=== PATIENT | male | born 1950 | race Caucasian/White ===

== ENCOUNTER 2021-12-06 01:23 | Day surgery (SDC) | payer BC, SELFPAY ==
--- NOTE | 2021-11-02 13:05 | PC.NURSE ---
Report to the Outpatient Waiting Room, entrance under the green pavilion located off [facility], at time _1000 on date _11/09/21 . OR Time: _1200 . - You and your visitor will be asked a series of questions to screen for COVID 19 for your protection. - A mask is required within the hospital. Preoperative COVID Testing Requirements: No COVID Test needed if: (proof is required; if not received patient will have Rapid Test prior to entry) - Patient has received COVID Vaccine at least 14 days prior to procedure date or - Patient has positive COVID test result within last 90 days of surgery date. COVID Test needed if above criteria is not met If not COVID vaccinated a COVID test must be conducted within 72 hours of surgery and patient is asked to isolate self from time of testing until procedure. You will go to the [facility] for your COVID testing. The [email or web address] is located at the corner of [address] [facility]. You will only be called if COVID results are positive and your surgeon may reschedule your elective surgery date. Patients may have clear liquids (water, carbonated beverages, clear teas, apple juice) until 3 hours prior to surgery with a maximum of 20 ounces. - No food from midnight until time of surgery - Infants may have breast milk until 4 hours before surgery, infant formula 6 hours prior to surgery. - Children will be allowed to drink immediately following surgery. If applicable, please bring a bottle or sippy cup to assist with drinking. Juice, water, soda, and popsicles are readily available. For infants on formula, please bring formula the day of surgery. Pacifiers are allowed. Take the following medications with a SIP of water the morning of surgery: PAIN PILL IF NEEDED Medications to discontinue per physician ___NONE Date to take last dose Please no make-up, nail prydeinig, hairspray, perfume, deodorant, or body powder the day of surgery. No jewelry (including any body piercings) or valuables the day of surgery, leave them at home. Please take a shower or bath the night before, or the morning of, surgery with an antibacterial soap. Wear comfortable, loose fitting clothing. Children are encouraged to wear pajamas. - Jewelry must be removed prior to entering the operating room. Rings and piercings that are not removed may be cut off. - The hospital will not accept responsibility for valuables. - Please leave all valuables, including medications, at home the day of surgery. If you are going home after surgery, a licensed shuttle driver must drive you home. - NO public transportation without another adult. - We recommend that an adult stay with you for 24 hours following discharge. - We also recommend that you do not drive, make important decision, drink alcoholic beverages, or take any drugs that were not prescribed by your health care provider for at least 24 hours after your discharge time. For Pediatric surgeries, we recommend two adults accompany the child home (only one inside the building at this time). One visitor will be allowed to accompany the patient into the hospital. Patients visitor will be instructed to remain with patient at all times or leave the building. We will allow the visitor to come back to the postoperative area when patient is ready. Follow any additional instructions given to you from your surgeon. Telephone instructions given to ___PATIENT and asked if any additional questions and then verbalized understanding. Patient advised to call surgeon office or pre surgery nurse liaison [phone] if any additional questions.
[2021-11-02 13:06] VITALS: BMI 31.8
--- NOTE | 2021-11-27 09:49 | PC.NURSE ---
Report to the Outpatient Waiting Room, entrance under the green pavilion located off [facility], at time _0900 on date _12/06/21 . OR Time: 1100 . - You and your visitor will be asked a series of questions to screen for COVID 19 for your protection. - A mask is required within the hospital. Preoperative COVID Testing Requirements: No COVID Test needed if: (proof is required; if not received patient will have Rapid Test prior to entry) - Patient has received COVID Vaccine at least 14 days prior to procedure date or - Patient has positive COVID test result within last 90 days of surgery date. COVID Test needed if above criteria is not met If not COVID vaccinated a COVID test must be conducted within 72 hours of surgery and patient is asked to isolate self from time of testing until procedure. You will go to the [facility] for your COVID testing. The [facility] is located at the corner of [address] [facility]. You will only be called if COVID results are positive and your surgeon may reschedule your elective surgery date. Patients may have clear liquids (water, carbonated beverages, clear teas, apple juice) until 3 hours prior to surgery with a maximum of 20 ounces. - No food from midnight until time of surgery - Infants may have breast milk until 4 hours before surgery, infant formula 6 hours prior to surgery. - Children will be allowed to drink immediately following surgery. If applicable, please bring a bottle or sippy cup to assist with drinking. Juice, water, soda, and popsicles are readily available. For infants on formula, please bring formula the day of surgery. Pacifiers are allowed. Take the following medications with a SIP of water the morning of surgery: ____PAIN PILL IF NEEDED Medications to discontinue per physician ____NONE Date to take last dose Please no make-up, nail palauan, hairspray, perfume, deodorant, or body powder the day of surgery. No jewelry (including any body piercings) or valuables the day of surgery, leave them at home. Please take a shower or bath the night before, or the morning of, surgery with an antibacterial soap. Wear comfortable, loose fitting clothing. Children are encouraged to wear pajamas. - Jewelry must be removed prior to entering the operating room. Rings and piercings that are not removed may be cut off. - The hospital will not accept responsibility for valuables. - Please leave all valuables, including medications, at home the day of surgery. If you are going home after surgery, a licensed stacker driver must drive you home. - NO public transportation without another adult. - We recommend that an adult stay with you for 24 hours following discharge. - We also recommend that you do not drive, make important decision, drink alcoholic beverages, or take any drugs that were not prescribed by your health care provider for at least 24 hours after your discharge time. For Pediatric surgeries, we recommend two adults accompany the child home (only one inside the building at this time). One visitor will be allowed to accompany the patient into the hospital. Patients visitor will be instructed to remain with patient at all times or leave the building. We will allow the visitor to come back to the postoperative area when patient is ready. Follow any additional instructions given to you from your surgeon. Telephone instructions given to _PATIENT and asked if any additional questions and then verbalized understanding. Patient advised to call surgeon office or pre surgery nurse liaison [phone] if any additional questions.
--- NOTE | 2021-11-27 09:50 | PC.NURSE ---
PT STATES NO CHANGE IN HEALTH HX SINCE LAST INTERVIEW ON 11/02/21
--- NOTE | 2021-12-04 17:42 | PM.SD2 ---
Same Day Admit/Disch: HPI History of Present Illness Chief complaint: Skin Cyst on Back Narrative: Bogdan Syed Jr. is a 71 year old male Who has had an enlarging subcutaneous mass in the right mid back for well over a year. He is very active man and and when he bumps this area or when he is particularly busy it will get irritated, inflamed, and painful. He has never had any drainage from this subcutaneous mass. He has taken antibiotics for this when it has been inflamed. He was seen in the office and found to have an inclusion cyst of the back. He is taken to surgery now for excision. [facility] Past Medical History Medical History Left lateral epicondylitis Mixed hyperlipidemia Obesity (BMI 30-39.9) Obstructive sleep apnea (adult) (pediatric) Subacromial impingement of left shoulder Tobacco abuse Type 2 diabetes mellitus without complications Surgical History Surgical History H/O shoulder surgery right rotator cuff with Dr. Aleksandr CONRAD History of shoulder surgery let rotator cuff Previous back surgery terry, 3 separate surgeries Family History Family History Mother Diabetes mellitus Hypertension Father No problems noted. Son Asthma Social History Social History Smoking packs per day: 1 Smoking cigarettes per day: 20.0 Years smoked: 8 Smoking pack-years: 8.00 Smoking status: Former smoker Tobacco type: cigarettes Second hand tobacco smoke exposure: No Smoking end date: 09/16/77 Alcohol intake: current Drinks per week: 7 Alcohol use details: BEER Substance use: never Substance use type: does not use Living arrangements: with family Additional occupation/education comments: [employer] Gender identity (if verbalized by the patient): Male Sexual Orientation (if Verbalized by the Patient): Straight or Heterosexual Spiritual care concerns: No Agree to blood products: Yes Same Day Admit/Disch: Med Pre-admit Medications Home Medications Medication Instructions Recorded Confirmed Type atorvastatin 20 mg tablet 10 mg PO DAILY 06/15/20 12/06/21 History metformin 500 mg PO TID 11/02/21 12/06/21 History lisinopril 20 mg tablet 20 mg PO DAILY #90 tablet 11/16/21 12/06/21 Rx buprenorphine HCl 300 mcg buccal 300 mcg BUCCAL Q12H #60 ea 11/29/21 12/06/21 Rx film hydrocodone 10 mg-acetaminophen 1 tablet PO QID PRN #120 tablet 11/29/21 Rx 325 mg tablet hydrocodone-acetaminophen 1 - 2 tablet PO Q6H PRN #10 tablet 12/06/21 Rx Exam Const: General: comfortable, no acute distress, alert and awake HENMT: Head: normocephalic and atraumatic Mouth: Yes Normal oral and palatal mucosa present Eyes: Conjunctivae: conjunctivae normal Pupils: Equal, round and reactive pupils present EOM: EOMs intact bilaterally Neck: Neck: normal visual inspection, no lymphadenopathy and nontender Resp: Effort & Inspection: normal respiratory effort Auscultation: clear to auscultation bilaterally Cardio: Rate: regular rate Rhythm: regular rhythm Heart sounds: no gallops, no murmurs and no rubs GI: Inspection: non-distended GI Palp: Yes Soft to palpation, No Tenderness to palpation present (GI), No Hepatomegaly present and No Splenomegaly present Back/Spine/Pelvis: Back: mass ( 3 x 2 cm mass in the right mid back just below the scapula. Nontender) and other ( consistent with inclusion cyst) Skin: Lesions: no lesions Rashes: no rashes Neuro: General: no focal motor deficits and CN's II-XI intact bilaterally Cranial nerves: Yes Equal, round and reactive pupils present, Yes Bilaterally intact EOM present, Yes facial symmetry and Yes Midline tongue present Speech: normal speech Motor exam (neuro): 5/5 motor strength present throughout a
[2021-12-06 09:43] VITALS: BP 151/85; PULSE 69; RESP 16; TEMP 37; O2SAT 100
[2021-12-06 10:05] LABS: Glucose Point of Care 186 mg/dl (65-105)
--- NOTE | 2021-12-06 10:14 | WPDHPUPDATE1 ---
History and Physical Update Update Date/Time: 12/06/21 10:14 History and Physical has been reviewed, including an updated exam of the patient. There are NO changes in the patient's condition. Risks, benefits, and alternatives have been discussed and questions answered. Patient agrees to proceed with procedure.
--- NOTE | 2021-12-06 10:26 | WPDANESEPP ---
Anes - Eval Pre Procedure Procedure: Operation Date: 12/06/21 11:00 Proposed Procedures p Excision Skin Cyst of the Back - Jam Calabrese MD Date/Time: 12/06/21 10:26 Pre Op Diagnosis: Skin Cyst on Back Patient Data Age: 71 Gender: M Height: 1.83 m Weight: 109.1 kg Last Vital Signs Temp 98.6 F 12/06/21 09:43 Pulse 69 12/06/21 09:43 Resp 16 12/06/21 09:43 BP 151/85 H 12/06/21 09:43 Pulse Ox 100 12/06/21 09:43 Allergies Allergy/AdvReac Type Severity Reaction Status Date / Time banana Allergy Mild Gastrointestinal Verified 12/06/21 09:31 Upset celecoxib Allergy Mild Nervousness Verified 12/06/21 09:31 NSAIDS (Non-Steroidal Allergy Mild elevated Verified 12/06/21 09:31 Anti-Inflamma heart rate Sulfa (Sulfonamide Allergy Mild RESPIRATORY Verified 12/06/21 09:31 Antibiotics) DISTRESS/THROAT CONSTRICTS morphine AdvReac Intermediate itching Verified 12/06/21 09:31 tramadol AdvReac Mild mental Verified 12/06/21 09:31 confusion Quesada Pepper Allergy Mild Gastrointestinal Uncoded 12/06/21 09:31 Upset Home Medications Medication Instructions Recorded Confirmed Type atorvastatin 20 mg tablet 10 mg PO DAILY 06/15/20 12/06/21 History metformin 500 mg PO TID 11/02/21 12/06/21 History lisinopril 20 mg tablet 20 mg PO DAILY #90 tablet 11/16/21 12/06/21 Rx buprenorphine HCl 300 mcg buccal 300 mcg BUCCAL Q12H #60 ea 11/29/21 12/06/21 Rx film hydrocodone 10 mg-acetaminophen 1 tablet PO QID PRN #120 tablet 11/29/21 Rx 325 mg tablet Laboratory Tests 12/06/21 09:49 POC Capillary Glucose 186 mg/dl H mg/dl (65-105) Patient hx anesthesia problems: none Family hx anesthesia problems: none Results Review: All pre-operative results and documents have been reviewed as part of the pre-operative evaluation. [facility] Past Medical History Medical History (Updated 12/06/21 @ 10:28 by Kasia Mesa CRNA) Left lateral epicondylitis Obesity (BMI 30-39.9) Subacromial impingement of left shoulder Tobacco abuse Surgical History Surgical History H/O shoulder surgery right rotator cuff with Dr. Aleksandr CONRDA History of shoulder surgery let rotator cuff Previous back surgery terry, 3 separate surgeries Family History Family History Mother Diabetes mellitus Hypertension Father No problems noted. Son Asthma Social History Social History Smoking packs per day: 1 Smoking cigarettes per day: 20.0 Years smoked: 8 Smoking pack-years: 8.00 Smoking status: Former smoker Tobacco type: cigarettes Second hand tobacco smoke exposure: No Smoking end date: 09/16/77 Alcohol intake: current Drinks per week: 7 Alcohol use details: BEER Substance use: never Substance use type: does not use Living arrangements: with family Additional occupation/education comments: [employer] Gender identity (if verbalized by the patient): Male Sexual Orientation (if Verbalized by the Patient): Straight or Heterosexual Spiritual care concerns: No Agree to blood products: Yes Exam Day of Procedure 12/06/21 10:26 Patient weight: obese (bmi 32.6) Heart: regular rate and rhythm Lungs: clear to auscultation Airway: Mallampati scale class III
--- NOTE | 2021-12-06 10:32 | W.PM.PROC2 ---
Procedure Note - Detailed Date of Procedure 12/06/21 Pre-op Diagnosis Skin Cyst on Back Post-op Diagnosis Same Procedure Performed Excision 5 cm skin cyst of the back with 1 cm margins, 7.5 cm layered closure Surgeon Jam Calabrese MD Anesthesia MAC and Local (0.25% Marcaine with epinephrine) Indications Patient has a subcutaneous nodule in the right mid back just under the scapula. This would frequently get infected but did respond to antibiotics. He was seen in the office and the lesion was felt to be 3 x 2 cm and was easily palpable. Since that time, the cyst has not flared with infection and has become more of a rather sunken scar. He is taken to surgery now for excision of the cyst to prevent further recurrences of infection. Findings The scarred, indurated area measured 5 cm in length. The cyst itself was not well-defined unlike its presentation in the office. 1 cm margins were used to excise the cyst to avoid leaving any remnants behind. The resultant wound measured 7.5 cm and was closed in layers. Description of Procedure The patient was taken to surgery and placed in prone position. IV sedation was administered. The area of the cyst been marked in the preoperative area and this area was prepped and draped. Local anesthetic was infiltrated over the ellipse that had been previously drawn on the skin. Subcutaneous infiltration was also carried out. Incision was made and dissection carried down through the subcutaneous. We took subcutaneous tissue and stayed away from any scar tissue resembling residual cyst. The excision included most of the subcutaneous but did not extend to the muscular fascia. The resultant defect was measured as noted above. Additional local was infiltrated into the deeper aspects of the wound. I then undermined some of the subcutaneous on each side. A deep layer of interrupted 3-0 Vicryl was placed. Isaac's fascia was then closed with interrupted 3-0 Vicryl. Some subcuticular 4-0 Vicryl sutures were placed. The skin was then approximated with horizontal mattress sutures of 3-0 nylon. The wound was dressed with Xeroform gauze fluffs and Medipore tape. Patient was awakened and taken to recovery in good condition. Sponge needle counts were correct x2. Estimated Blood Loss -5 Drains No Packing No Pathology Yes (Skin cyst of the back) Complications No immediate complications Condition Stable Disposition Same day
[2021-12-06] MEDS: LACTATED RINGERS 1,000 ML 30 ML IV CONT (10:33)
--- NOTE | 2021-12-06 10:35 | WPDANESEPPF ---
Anes - Initial Pre Proc Eval Procedure: Operation Date: 12/06/21 11:00 Proposed Procedures p Excision Skin Cyst of the Back - Jam Calabrese MD Date/Time: 12/06/21 10:35 Surgeon: Jam Calabrese MD Pre Op Diagnosis: Skin Cyst on Back Patient Data Age: 71 Gender: M Height: 1.83 m Weight: 109.1 kg Last Vital Signs Temp 37.0 C 12/06/21 09:43 Pulse 69 12/06/21 09:43 Resp 16 12/06/21 09:43 BP 151/85 H 12/06/21 09:43 Pulse Ox 100 12/06/21 09:43 Allergies Allergy/AdvReac Type Severity Reaction Status Date / Time banana Allergy Mild Gastrointestinal Verified 12/06/21 09:31 Upset celecoxib Allergy Mild Nervousness Verified 12/06/21 09:31 NSAIDS (Non-Steroidal Allergy Mild elevated Verified 12/06/21 09:31 Anti-Inflamma heart rate Sulfa (Sulfonamide Allergy Mild RESPIRATORY Verified 12/06/21 09:31 Antibiotics) DISTRESS/THROAT CONSTRICTS morphine AdvReac Intermediate itching Verified 12/06/21 09:31 tramadol AdvReac Mild mental Verified 12/06/21 09:31 confusion Quesada Pepper Allergy Mild Gastrointestinal Uncoded 12/06/21 09:31 Upset Home Medications Medication Instructions Recorded Confirmed Type atorvastatin 20 mg tablet 10 mg PO DAILY 06/15/20 12/06/21 History metformin 500 mg PO TID 11/02/21 12/06/21 History lisinopril 20 mg tablet 20 mg PO DAILY #90 tablet 11/16/21 12/06/21 Rx buprenorphine HCl 300 mcg buccal 300 mcg BUCCAL Q12H #60 ea 11/29/21 12/06/21 Rx film hydrocodone 10 mg-acetaminophen 1 tablet PO QID PRN #120 tablet 11/29/21 Rx 325 mg tablet hydrocodone-acetaminophen 1 - 2 tablet PO Q6H PRN #10 tablet 12/06/21 Rx Laboratory Tests 12/06/21 09:49 POC Capillary Glucose 186 mg/dl H mg/dl (65-105) Patient hx anesthesia problems: none Family hx anesthesia problems: none Results Review: All pre-operative results and documents have been reviewed as part of the pre-operative evaluation. [facility] Past Medical History Medical History Left lateral epicondylitis Mixed hyperlipidemia Obesity (BMI 30-39.9) Obstructive sleep apnea (adult) (pediatric) Subacromial impingement of left shoulder Tobacco abuse Type 2 diabetes mellitus without complications Surgical History Surgical History H/O shoulder surgery right rotator cuff with Dr. Aleksandr CONRAD History of shoulder surgery let rotator cuff Previous back surgery terry, 3 separate surgeries Family History Family History Mother Diabetes mellitus Hypertension Father No problems noted. Son Asthma Social History Social History Smoking packs per day: 1 Smoking cigarettes per day: 20.0 Years smoked: 8 Smoking pack-years: 8.00 Smoking status: Former smoker Tobacco type: cigarettes Second hand tobacco smoke exposure: No Smoking end date: 09/16/77 Alcohol intake: current Drinks per week: 7 Alcohol use details: BEER Substance use: never Substance use type: does not use Living arrangements: with family Additional occupation/education comments: [employer] Gender identity (if verbalized by the patient): Male Sexual Orientation (if Verbalized by the Patient): Straight or Heterosexual Spiritual care concerns: No Agree to blood products: Yes Anes - Eval Final PreProcedure Day of Procedure 12/06/21 10:35 Patient weight: obese Heart: regular rate and rhythm Lungs: decreased breath sounds Airway: Mallampati scale class II Neurological: alert and oriented Last oral intake: >/= 8 hours ASA classification: III Emergent: no Anesthetic plan: proceed Anesthesia type and monitoring: general GIVS and standard monitoring Results Review: All pre-operative results and documents have been reviewed as part o
[2021-12-06] MEDS: ceFAZolin 2 GM/D5W 50 ML 2 GM/50 ML BAG IVPB (10:46)
[2021-12-06] MEDS: BUPIVACAINE/EPINEPHRINE 0.25% 10 ML VIAL 30 ML INFILTRATE (10:57)
[2021-12-06 11:20] VITALS: BP 127/71; PULSE 76; RESP 14; O2SAT 96
[2021-12-06 11:34] LABS: Glucose Point of Care 194 mg/dl (65-105)
[2021-12-06 11:50] VITALS: BP 121/68; PULSE 73; RESP 18; O2SAT 97
[2021-12-06] MEDS: oxyCODONE HCL (*CRX) 5 MG TAB IR PO (12:14)
[2021-12-06 12:21] VITALS: BP 146/78; PULSE 68; RESP 18
== END 2021-12-06 12:28 | disposition home or self-care (01) ==
PROVIDERS: PCP Family Medicine Adolescent Medicine; Visit Provider Surgery
PROC: (CPT 11406; principal; 2021-12-06 11:00)
DX: L90.5 Scar conditions and fibrosis of skin (principal); M79.89 Other specified soft tissue disorders; E78.2 Mixed hyperlipidemia; E11.9 Type 2 diabetes mellitus without complications; G47.33 Obstructive sleep apnea (adult) (pediatric); M54.50 Low back pain, unspecified; E66.9 Obesity, unspecified; Z68.32 Body mass index [BMI] 32.0-32.9, adult; Z87.891 Personal history of nicotine dependence; Z79.84 Long term (current) use of oral hypoglycemic drugs; Z79.891 Long term (current) use of opiate analgesic
CPT/HCPCS: 11406; 12032; 82948; 88304; A9270; J0690; J2250; J2704; J3010; J7120

== ENCOUNTER 2024-08-01 13:09 | Emergency (ER) | payer BC, SELFPAY ==
--- NOTE | ~2024-08-01 | XR_ITS ---
EXAMINATION: [id number] DATE: 08/01/2024 13:27 INDICATION: Right chest pain. Fall. TECHNIQUE: A frontal view of the chest and 2 views on 3 radiographs of the right ribs were obtained. COMPARISON: None. FINDINGS: There is no pneumonia, pleural effusion, or pneumothorax. The heart size is normal. There a re changes of anterior and posterior fusion procedures in lumbar spine. IMPRESSION: 1. No rib fracture. Reviewed, dictated and finalized at location A. TROTHERAPIST IMPRESSION: 1. No rib fracture.
--- NOTE | ~2024-08-01 | XR_ITS ---
EXAMINATION: XR shoulder RT min 2V DATE: 08/01/2024 13:26 INDICATION: Right shoulder pain. TECHNIQUE: 4 views of right shoulder were obtained. COMPARISON: None. FINDINGS: Alignment is normal. There are likely changes of distal right clavicle resection. No fractu re. There is mild osteoarthritis of glenohumeral joint. IMPRESSION: 1. Mild osteoarthritis of glenohumeral joint. Reviewed, dictated and finalized at location A. SHED CLOTH EXAMINER
[2024-08-01 13:16] VITALS: BP 175/85; PULSE 74; RESP 18; TEMP 36.2; O2SAT 99
--- NOTE | 2024-08-01 14:36 | ED.FALL ---
HPI - Fall General Chief Complaint: Fall Stated Complaint: FALL Time Seen by Provider: 08/01/24 14:35 Source: patient Mode of arrival: ambulatory Limitations: no limitations History of Present Illness HPI Narrative: This is a 74-year-old male who presents to the ED for chief complaint of right-sided rib pain and right shoulder pain after a fall that occurred yesterday evening. Patient was caring some things outside when he accidentally fell down on the porch. States he landed onto his right side fell hard. He has had a lot of shoulder work done so his family convinced him to come and make sure there were no fractures. States the right shoulder is more bothersome than the right side of the ribs. Denies further sites of pain or injury. Denies head injury or LOC. denies numbness or weakness. Related Data Allergies Allergy/AdvReac Type Severity Reaction Status Date / Time banana Allergy Mild Gastrointestinal Verified 06/22/24 09:06 Upset celecoxib Allergy Mild Nervousness Verified 06/22/24 09:06 NSAIDS (Non-Steroidal Allergy Mild elevated Verified 06/22/24 09:06 Anti-Inflamma heart rate Sulfa (Sulfonamide Allergy Mild RESPIRATORY Verified 06/22/24 09:06 Antibiotics) DISTRESS/THROAT CONSTRICTS morphine AdvReac Intermediate itching Verified 06/22/24 09:06 tramadol AdvReac Mild mental Verified 06/22/24 09:06 confusion Quesada Pepper Allergy Mild Gastrointestinal Uncoded 06/22/24 09:06 Upset Review of Systems Review of Systems: All systems as dictated in HPI [facility] Past Medical History Medical History Left lateral epicondylitis Mixed hyperlipidemia Obesity (BMI 30-39.9) Obstructive sleep apnea (adult) (pediatric) Subacromial impingement of left shoulder Tobacco abuse Type 2 diabetes mellitus without complications Surgical History Surgical History H/O shoulder surgery right rotator cuff with Dr. Aleksanrd CONRAD History of shoulder surgery let rotator cuff Previous back surgery terry, 3 separate surgeries Family History Family History Mother Diabetes mellitus Hypertension Father No problems noted. Son Asthma Social History Social History Smoking packs per day: 1 Smoking cigarettes per day: 20.0 Years smoked: 8 Smoking pack-years: 8.00 Smoking status: Former smoker Tobacco type: cigarettes Second hand tobacco smoke exposure: No Smoking end date: 09/16/77 Alcohol intake: current Drinks per week: 7 Alcohol use details: BEER Substance use: never Substance use type: does not use Do You Feel Safe in your Home?: Yes Lack of Transportation: No Lack of Food: Never True Current Housing: I Have Housing Concerned About Future Housing: No Difficulty Paying Gas/Electric Bills: No Difficulty Paying for Meds: No Currently Unemployed: No Education: Trade/Vocational Certificate Difficulty w/ Childcare or Family Care: No Living arrangements: with family Occupation/Education: occupation Additional occupation/education comments: [employer] Gender identity (if verbalized by the patient): Male Sexual Orientation (if Verbalized by the Patient): Straight or Heterosexual Spiritual care concerns: No Agree to blood products: Yes Exam Narrative: GENERAL: Well-appearing, well-nourished, and in no acute distress. HEAD: Normocephalic, atraumatic. MSK: Right-sided chest wall tenderness along the ribs. no bruising or crepitus. Difficulty with active range of motion of the right shoulder. No deformities to the shoulder. Minimal tenderness. No bruising. SKIN: Warm, dry, no rash. NEURO: Alert and oriented x4. No focal deficits. PSYCH: Normal mood and affect. Course Vital Signs Vital signs: Vital Signs Temperature 97.2 F L 08/01/24 13:16 Pulse Rate 74 08/01/24 13:16 Respiratory Rate 18 08/01/24 13:16 Blood Pressure 175/85 H 08/01/24 13:16 Pulse Oximetry 99 08/01/24 13:16 Oxygen Delivery Room Air 08/01/24 13:16 Temperature 97.2 F L 08/01/24 13:16 Pulse Rate 74 08/01/24 13:16 Respiratory Rate 18 08/01/24 13:16 Blood Pressure 175/85 H 08/01/24 13:16 Pulse Oximetry 99 08/01/24 13:16 Oxygen Delivery Room Air 08/01/24 13:16 MDM - Fall MDM Narrative Medical decision making narrative: This is a 74-year-old male who presents to the ED for chief complaint of right shoulder and right rib cage injury that occurred yesterday while following on the porch. Vitals are normal. Exam shows Difficulty with range of motion of the shoulder but minimal tenderness and no deformity. Ribs x-ray and right shoulder x-ray do not show any acute osseous findings. He will be given sling for shoulder injury. He has close follow-up with his orthopedic doctor for his shoulder. Patient will be discharged in stable condition. Supportive measures discussed and return precautions given. Patient is understanding and agreeable with plan for discharge with PCP follow-up. Discharge Plan Discharge Clinical Impression: Injury of right shoulder, Rib pain on right side Patient Disposition: Home, Self-Care Condition: Stable Instructions: Antibiotic Form, Shoulder Pain (ED) Additional Instructions: Exam and imaging today are reassuring. No fractures. Use the sling for comfort. Take your normal pain medications as needed. If you have any new or worsening symptoms please return to the ER for further evaluation. Prescriptions: No Action diclofenac sodium 75 mg tablet,delayed release (DR/EC) 75 mg PO BID Qty: 60 2RF diclofenac sodium 75 mg tablet,delayed release (DR/EC) 75 mg PO BID Qty: 90 0RF atorvastatin 20 mg tablet 20 mg PO DAILY Qty: 90 2RF lisinopril 20 mg tablet 20 mg PO DAILY Qty: 90 2RF metformin 500 mg tablet extended release 24 hr 1,000 mg PO BID Qty: 360 2RF buprenorphine HCl [Belbuca] 300 mcg film 300 mcg buccal Q12H PRN (Reason: pain) Qty: 60 0RF hydrocodone-acetaminophen 10-325 mg tablet 1 tablet PO BID PRN (Reason: pain) Qty: 60 0RF Hold Instructions: dose unavailable Follow-up/Referrals: Luis Espinoza MD [Primary Care Provider] - Time of Disposition: 14:37
== END 2024-08-01 14:45 | disposition home or self-care (01) ==
LOC: ANHED 14:44
PROVIDERS: Emergency Provider Physician Assistant; PCP Family Medicine Adolescent Medicine
DX: S49.91XA Unspecified injury of right shoulder and upper arm, initial encounter (principal); R07.89 Other chest pain; E11.9 Type 2 diabetes mellitus without complications; E78.2 Mixed hyperlipidemia; E66.9 Obesity, unspecified; Z68.31 Body mass index [BMI] 31.0-31.9, adult; G47.33 Obstructive sleep apnea (adult) (pediatric); Z87.891 Personal history of nicotine dependence; Z79.84 Long term (current) use of oral hypoglycemic drugs; Z79.899 Other long term (current) drug therapy; W01.0XXA Fall on same level from slipping, tripping and stumbling without subsequent striking against object, initial encounter
CPT/HCPCS: 71101; 73030; 99284; A4565

== ENCOUNTER 2025-02-19 09:05 | Outpatient (CLI) | payer BC, SELFPAY ==
--- NOTE | ~2025-02-19 | CT_ITS ---
EXAMINATION: CT pelvis wo con DATE: 02/19/2025 09:31 INDICATION: Left buttock muscle tear at the left ischial post injury 3 months prior TECHNIQUE: High resolution computed tomography (CT) of the pelvis was performed without intravenous c ontrast. Additional sagittal and coronal reconstructions were performed. Automated exposure control a nd iterative reconstruction technique were employed. The dose-length product was 763.04 mGy-cm. COMPARISON: None FINDINGS: Partial L4 laminectomy and change of prior L4-L5 instrumented anterior and posterior spinal fusion wi interbody fusion device and bilateral vertical lola and pedicle screw fixation. There is mild to mo derate right-sided prominent disc height loss with vacuum phenomena at L5-S1 and mild to moderate pos terior predominant disc height loss also with vacuum phenomena at L3-L4. Severe facet osteoarthritis bilaterally at L3-L4, on the right at L5-S1 and moderate facet osteoarthritis on the left at L5-S1. C hronic bone graft harvest site at the right posterior iliac spine. Mild bilateral sacroiliac and hip osteoarthritis. There is thickening and central decreased density of the bilateral hamstring tendons at the ischial tuberosity origins consistent with tendinopathy, left greater than right. No definitiv e tear identified however assessment for partial thickness tear is significantly more limited than [facility] MRI. Musculature of the pelvis and bilateral proximal thighs appears normal and symmetric. Bladder is normal. Visualized portions of the bowels in the pelvis appear unremarkable with no obstruction. No free fluid in the pelvis. No pathologically enlarged pelvic or inguinal lymphadenopathy. IMPRESSION: 1. 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 No definitive tear identified alth ough sensitivity is significantly lower than with MRI which could be obtained as clinically indicated . 2. Moderate lower lumbar spondylosis with prior instrumented L4-L5 anterior and posterior spinal fusi on. Reviewed, dictated and finalized at location A. IMPRESSION: 1. Tendinopathy of the bilateral proximal hamstring tendons at their ischial tu berosity origins which appears thickened with central decreased density, left a nd right. No definitive tear identified although sensitivity is significantly l ower than with MRI which could be obtained as clinically indicated. 2. Moderate lower lumbar spondylosis with prior instrumented L4-L5 anterior and posterior spinal fusion.
== END 2025-02-19 09:06 | disposition home or self-care (01) ==
PROVIDERS: PCP Family Medicine Adolescent Medicine; Visit Provider Family Medicine Adolescent Medicine
DX: T14.8XXA Other injury of unspecified body region, initial encounter (principal); M47.896 Other spondylosis, lumbar region
CPT/HCPCS: 72192